=== PATIENT | male | born 1955 | race Caucasian/White ===

== ENCOUNTER 2017-12-21 07:31 | Inpatient (IN) | payer MEDICARE, MEDICAID ==
[~2017-12-21] VITALS: Ht 165.1 cm; Wt 96.0 kg
[~2017-12-21 07:31] MED LIST: AMLO5TAB4 PO; ASPI325T17 PO; ATOR40TA PO; FENO145T32 PO; LISI-167 PO; METO25TA35 PO; SIMV20TA PO; TRAZ-136 PO; VALS80TA3 PO
[2017-12-21] MEDS ORDERED: LIDOCAINE 2%,20 ML JEL.PF.APP MM ONE (07:47)
[2017-12-21 08:19] LABS: BASOPHILS # (AUTO) 0.02 x10^3/uL (0-0.1); BASOPHILS % (AUTO) 0 % (0-1); EOSINOPHILS # (AUTO) 0.02 x10^3/uL (0-0.4); EOSINOPHILS % (AUTO) 0 % (1-7); LYMPHOCYTES % (AUTO) 7 % (22-44); MD NO; MEAN CORPUSCULAR HEMOGLOBIN 27.6 pg (27.5-34.5); MEAN CORPUSCULAR HGB CONC 33.6 g/dL (33.2-36.2); MEAN PLATELET VOLUME 8.9 fL (7.4-10.4); MONOCYTES # (AUTO) 0.65 x10^3/uL (0.2-0.8); MONOCYTES % (AUTO) 5 % (2-9); NEUTROPHILS # (AUTO) 12.22 x10^3/uL (1.8-6.8); NEUTROPHILS % (AUTO) 88 % (42-75); PLATELET COUNT 294 x10^3/uL (130-400); RED BLOOD COUNT 5.79 x10^6/uL (4.38-5.82); RED CELL DISTRIBUTION WIDTH 13.6 % (9.4-14.8)
[2017-12-21 08:30] LABS: CHLORIDE 106 mmol/L (98-107)
[2017-12-21] MEDS ORDERED: MORPHINE SULFATE 4 MG/ML, 1ML IVPush PRN (08:30)
[2017-12-21] MEDS ORDERED: ONDANSETRON ODT 4 MG PO ONE (08:30)
[2017-12-21 08:31] LABS: ANION GAP 9 mmol/L (5-15); CALCIUM 9.3 mg/dL (8.5-10.1); CREATININE 1.16 mg/dL (0.7-1.3)
[2017-12-21 08:33] LABS: CULTURE INDICATED? YES; MICROSCOPIC INDICATED
[2017-12-21] MEDS ORDERED: ONDANSETRON 2MG/ML, 2ML ONE ×2 (08:47)
[2017-12-21] MEDS ORDERED: DEXAMETHASONE 4 MG/ML, 1ML ONE (08:47)
[2017-12-21] MEDS ORDERED: METOCLOPRAMIDE 5 MG/ML, 2ML ONE (08:48)
[2017-12-21] MEDS ORDERED: LIDOCAINE-MPF 2% ,5ML ONE (08:50)
[2017-12-21] MEDS ORDERED: MIDAZOLAM 1 MG/ML, 2ML ONE (08:50)
[2017-12-21] MEDS ORDERED: PROPOFOL 10 MG/ML, 20ML ONE (08:50)
[2017-12-21] MEDS ORDERED: FENTANYL PF 100 MCG/2ML ONE ×4 (08:50→11:31)
[2017-12-21] MEDS ORDERED: CEFAZOLIN 1,000 MG ONE (09:04)
[2017-12-21] MEDS ORDERED: LABETALOL 5MG/ML 40ML VIAL ONE (09:04)
[2017-12-21] MEDS ORDERED: hydrALAzine 20 MG/ML, 1ML ONE ×2 (09:31→10:48)
[2017-12-21] MEDS: LABETALOL 5MG/ML, 20ML IV PRN ×4 (10:25→10:49)
[2017-12-21] MEDS ORDERED: HYDROmorphone 1 MG/ML, 1ML IV PRN (10:30)
[2017-12-21] MEDS ORDERED: ONDANSETRON 2MG/ML, 2ML IVPush PRN ×2 (10:30→11:30)
[2017-12-21] MEDS ORDERED: MEPERIDINE/PF 25MG/0.5ML IVPush PRN (10:30)
[2017-12-21] MEDS ORDERED: OXYcodone 5 MG/5 ML ORAL.SOL UDC PO PRN (10:30)
[2017-12-21] MEDS ORDERED: MIDAZOLAM 1 MG/ML, 2ML IV PRN (10:30)
[2017-12-21] MEDS: FENTANYL PF 100 MCG/2ML IV PRN ×4 (10:33→11:55)
[2017-12-21] MEDS ORDERED: hydrALAzine 20 MG/ML, 1ML IV ONE (11:00)
[2017-12-21] MEDS ORDERED: OPIUM/BELLADONNA SUPP.RECT 16.2-60 MG PR STA (11:21)
[2017-12-21] MEDS ORDERED: OPIUM/BELLADONNA SUPP.RECT 16.2-30 MG ONE (11:23)
[2017-12-21] MEDS ORDERED: TEMAZEPAM 15 MG CAPSULE PO PRN (11:30)
[2017-12-21] MEDS ORDERED: CEFTRIAXONE 2 GM in SODIUM CHLORIDE 0.9% 50 ML IV SCH (11:30)
[2017-12-21] MEDS ORDERED: morphine SULFATE 10 MG/ML, 1ML IVPush PRN (11:30)
[2017-12-21] MEDS ORDERED: hydrALAzine 20 MG/ML, 1ML IVPush PRN (11:30)
[2017-12-21] MEDS ORDERED: ACETAMINOPHEN 325 MG TABLET PO PRN (11:30)
[2017-12-21] MEDS ORDERED: OPIUM/BELLADONNA SUPP.RECT 16.2-60 MG PR PRN ×2 (12:00→12:55)
[2017-12-21 12:49] VITALS: BP 179/88
[2017-12-21 13:39] VITALS: BP 177/91
[2017-12-21] MEDS: CEFTRIAXONE PMX 2GM/50ML 50 ML IV SCH (14:19)
[2017-12-21] MEDS: FENOFIBRATE 145 MG TABLET PO SCH (14:19)
[2017-12-21] MEDS: AMLODIPINE 10 MG TAB PO SCH (14:19)
[2017-12-21] MEDS: LISINOPRIL 10 MG TABLET PO SCH ×2 (14:19→21:45)
[2017-12-21] MEDS: LACTATED RINGERS 1,000 ML IV SCH (16:53)
[2017-12-21] MEDS: HYDROcodone/APAP 5/325 TABLET PO PRN ×2 (16:53→22:06)
[2017-12-21] MEDS: METOPROLOL TARTRATE 25 MG TABLET PO SCH (18:29)
[2017-12-21 19:51] VITALS: BP 145/74
[2017-12-21 21:44] VITALS: BP 151/73
[2017-12-21] MEDS ORDERED: HEPARIN 5,000 UNITS/ML, 1ML IV ONE (23:30)
[2017-12-21] MEDS: HEPARIN 25,000 UNITS/500ML PMX 500 ML IV PRN (23:50)
[2017-12-22] VITALS (7 sets, daily range): BP systolic 143–175; BP diastolic 74–90
[2017-12-22 05:09] LABS: BASOPHILS # (AUTO) 0.07 x10^3/uL (0-0.1); BASOPHILS % (AUTO) 0 % (0-1); EOSINOPHILS % (AUTO) 0 % (1-7); LYMPHOCYTES # (AUTO) 1.82 x10^3/uL (1-3.4); LYMPHOCYTES % (AUTO) 11 % (22-44); MD NO; MEAN CORPUSCULAR HGB CONC 33.6 g/dL (33.2-36.2); MEAN CORPUSCULAR VOLUME 83.3 fL (81-97); MEAN PLATELET VOLUME 9.3 fL (7.4-10.4); MONOCYTES # (AUTO) 1.51 x10^3/uL (0.2-0.8); MONOCYTES % (AUTO) 9 % (2-9); NEUTROPHILS # (AUTO) 13.96 x10^3/uL (1.8-6.8); NEUTROPHILS % (AUTO) 80 % (42-75); PLATELET COUNT 314 x10^3/uL (130-400); RED BLOOD COUNT 4.85 x10^6/uL (4.38-5.82); RED CELL DISTRIBUTION WIDTH 14.2 % (9.4-14.8)
[2017-12-22 05:20] LABS: ALANINE AMINOTRANSFERASE 26 U/L (12-78); ALBUMIN 3.3 g/dL (3.4-5.0); ANION GAP 10 mmol/L (5-15); CALCIUM 8.6 mg/dL (8.5-10.1); CHLORIDE 106 mmol/L (98-107); CREATININE 1.72 mg/dL (0.7-1.3)
[2017-12-22 05:25] LABS: ALKALINE PHOSPHATASE 63 U/L (45-117); BILIRUBIN,TOTAL 0.7 mg/dL (0.2-1.0); TOTAL PROTEIN 7.7 g/dL (6.4-8.2)
[2017-12-22] MEDS: METOPROLOL TARTRATE 25 MG TABLET PO SCH ×2 (05:26→18:24)
[2017-12-22 05:34] LABS: HEMOGLOBIN A1C 5.5 % (4.2-6.3)
[2017-12-22] MEDS: HEPARIN 5,000 UNITS/ML, 1ML IV PRN ×3 (07:11→22:09)
[2017-12-22] MEDS ORDERED: LORazepam 2 MG/ML, 1ML IVPush PRN (08:30)
[2017-12-22 08:44] LABS: CHOL/HDL RATIO 3.1; LDL/HDL RATIO 1.7 (0.5-3.0)
[2017-12-22] MEDS: LACTATED RINGERS 1,000 ML IV SCH ×2 (09:53→22:25)
[2017-12-22] MEDS: FENOFIBRATE 145 MG TABLET PO SCH (09:53)
[2017-12-22] MEDS: LISINOPRIL 10 MG TABLET PO SCH ×2 (09:53→21:43)
[2017-12-22] MEDS: AMLODIPINE 10 MG TAB PO SCH (09:53)
[2017-12-22] MEDS: HYDROcodone/APAP 5/325 TABLET PO PRN (09:57)
[2017-12-22] MEDS: CEFTRIAXONE PMX 2GM/50ML 50 ML IV SCH (13:32)
[2017-12-22] MEDS: ATORVASTATIN 80 MG TABLET PO SCH (21:42)
[2017-12-22] MEDS: HEPARIN 25,000 UNITS/500ML PMX 500 ML IV PRN (22:08)
[2017-12-23 00:53] VITALS: BP 159/90
[2017-12-23 05:03] VITALS: BP 140/79
[2017-12-23] MEDS: METOPROLOL TARTRATE 25 MG TABLET PO SCH ×2 (05:04→18:32)
[2017-12-23 06:11] LABS: ANION GAP 8 mmol/L (5-15); CHLORIDE 108 mmol/L (98-107)
[2017-12-23 06:12] LABS: BASOPHILS # (AUTO) 0.06 x10^3/uL (0-0.1); BASOPHILS % (AUTO) 1 % (0-1); EOSINOPHILS # (AUTO) 0.13 x10^3/uL (0-0.4); EOSINOPHILS % (AUTO) 1 % (1-7); LYMPHOCYTES # (AUTO) 2.65 x10^3/uL (1-3.4); LYMPHOCYTES % (AUTO) 22 % (22-44); MD NO; MEAN CORPUSCULAR HGB CONC 33.6 g/dL (33.2-36.2); MEAN CORPUSCULAR VOLUME 83.4 fL (81-97); MONOCYTES # (AUTO) 1.39 x10^3/uL (0.2-0.8); MONOCYTES % (AUTO) 11 % (2-9); NEUTROPHILS # (AUTO) 8.01 x10^3/uL (1.8-6.8); NEUTROPHILS % (AUTO) 65 % (42-75); PLATELET COUNT 249 x10^3/uL (130-400); RED CELL DISTRIBUTION WIDTH 14.4 % (9.4-14.8)
[2017-12-23] MEDS: HEPARIN 5,000 UNITS/ML, 1ML IV PRN (06:16)
[2017-12-23 08:00] VITALS: BP 145/95
[2017-12-23] MEDS: LISINOPRIL 10 MG TABLET PO SCH ×2 (09:10→21:53)
[2017-12-23] MEDS: FENOFIBRATE 145 MG TABLET PO SCH (09:10)
[2017-12-23] MEDS: AMLODIPINE 10 MG TAB PO SCH (09:11)
[2017-12-23] MEDS: ASPIRIN 81 MG TABLET EC PO SCH (09:31)
[2017-12-23] MEDS: LACTATED RINGERS 1,000 ML IV SCH (09:32)
[2017-12-23 13:00] VITALS: BP 154/85
[2017-12-23] MEDS: CEFTRIAXONE PMX 2GM/50ML 50 ML IV SCH (13:57)
[2017-12-23] MEDS: LIDOCAINE 4% CREAM 5GM TUBE TP PRN (18:32)
[2017-12-23 20:11] VITALS: BP 165/84
[2017-12-23] MEDS: ATORVASTATIN 80 MG TABLET PO SCH (21:53)
[2017-12-24] VITALS (7 sets, daily range): BP systolic 119–191; BP diastolic 67–99
[2017-12-24] MEDS: LACTATED RINGERS 1,000 ML IV SCH ×2 (00:22→14:12)
[2017-12-24 05:07] LABS: BASOPHILS # (AUTO) 0.06 x10^3/uL (0-0.1); BASOPHILS % (AUTO) 1 % (0-1); EOSINOPHILS # (AUTO) 0.27 x10^3/uL (0-0.4); EOSINOPHILS % (AUTO) 2 % (1-7); LYMPHOCYTES # (AUTO) 2.16 x10^3/uL (1-3.4); LYMPHOCYTES % (AUTO) 17 % (22-44); MD NO; MEAN CORPUSCULAR HEMOGLOBIN 27.6 pg (27.5-34.5); MEAN CORPUSCULAR HGB CONC 33.3 g/dL (33.2-36.2); MEAN CORPUSCULAR VOLUME 82.8 fL (81-97); MEAN PLATELET VOLUME 8.8 fL (7.4-10.4); MONOCYTES # (AUTO) 1.41 x10^3/uL (0.2-0.8); MONOCYTES % (AUTO) 11 % (2-9); NEUTROPHILS # (AUTO) 8.48 x10^3/uL (1.8-6.8); NEUTROPHILS % (AUTO) 69 % (42-75); PLATELET COUNT 261 x10^3/uL (130-400); RED BLOOD COUNT 4.69 x10^6/uL (4.38-5.82); RED CELL DISTRIBUTION WIDTH 14.5 % (9.4-14.8)
[2017-12-24 05:20] LABS: ANION GAP 9 mmol/L (5-15); CALCIUM 9.2 mg/dL (8.5-10.1); CHLORIDE 108 mmol/L (98-107); CREATININE 0.94 mg/dL (0.7-1.3)
[2017-12-24] MEDS: ASPIRIN 81 MG TABLET EC PO SCH (06:27)
[2017-12-24] MEDS: METOPROLOL TARTRATE 25 MG TABLET PO SCH (06:27)
[2017-12-24] MEDS ORDERED: SODIUM CHLORIDE 0.9% 1,000 ML IV ONE (09:16)
[2017-12-24] MEDS: AMLODIPINE 10 MG TAB PO SCH (10:41)
[2017-12-24] MEDS: LISINOPRIL 10 MG TABLET PO SCH ×2 (10:41→21:08)
[2017-12-24] MEDS: FENOFIBRATE 145 MG TABLET PO SCH (10:41)
[2017-12-24] MEDS: AQUAPHOR NATURAL HEALING OINT 50GM TP PRN (10:48)
[2017-12-24] MEDS ORDERED: HEPARIN 1,000 UNITS/ML, 10ML ONE (11:37)
[2017-12-24] MEDS ORDERED: VERAPAMIL 2.5 MG/ML, 2ML ONE (11:37)
[2017-12-24] MEDS ORDERED: BUPIVACAINE 0.25% ONE (11:37)
[2017-12-24] MEDS ORDERED: MIDAZOLAM 1 MG/ML, 5ML ONE (11:37)
[2017-12-24] MEDS ORDERED: BIVALIRUDIN 250 MG ONE (11:37)
[2017-12-24] MEDS ORDERED: FENTANYL PF 100 MCG/2ML ONE (11:37)
[2017-12-24] MEDS ORDERED: SODIUM CHLORIDE 0.9% 1,000 ML IV SCH (13:07)
[2017-12-24] MEDS: CEFTRIAXONE PMX 2GM/50ML 50 ML IV SCH (14:11)
[2017-12-24] MEDS: CARVEDILOL 6.25 MG TABLET PO SCH (17:19)
[2017-12-24] MEDS: ATORVASTATIN 80 MG TABLET PO SCH (21:08)
[2017-12-25 01:47] VITALS: BP 164/81
[2017-12-25] MEDS: LIDOCAINE 4% CREAM 5GM TUBE TP PRN ×2 (02:18→11:39)
[2017-12-25] MEDS: AQUAPHOR NATURAL HEALING OINT 50GM TP PRN (02:18)
[2017-12-25] MEDS: LACTATED RINGERS 1,000 ML IV SCH ×2 (03:45→19:38)
[2017-12-25 05:33] LABS: BASOPHILS # (AUTO) 0.03 x10^3/uL (0-0.1); BASOPHILS % (AUTO) 0 % (0-1); EOSINOPHILS # (AUTO) 0.43 x10^3/uL (0-0.4); EOSINOPHILS % (AUTO) 4 % (1-7); LYMPHOCYTES # (AUTO) 2.45 x10^3/uL (1-3.4); LYMPHOCYTES % (AUTO) 20 % (22-44); MD NO; MEAN CORPUSCULAR HEMOGLOBIN 28.4 pg (27.5-34.5); MEAN CORPUSCULAR HGB CONC 33.8 g/dL (33.2-36.2); MEAN CORPUSCULAR VOLUME 83.9 fL (81-97); MEAN PLATELET VOLUME 9.3 fL (7.4-10.4); MONOCYTES % (AUTO) 12 % (2-9); NEUTROPHILS # (AUTO) 7.84 x10^3/uL (1.8-6.8); NEUTROPHILS % (AUTO) 65 % (42-75); PLATELET COUNT 250 x10^3/uL (130-400); RED BLOOD COUNT 4.44 x10^6/uL (4.38-5.82); RED CELL DISTRIBUTION WIDTH 13.8 % (9.4-14.8)
[2017-12-25] MEDS: ASPIRIN 81 MG TABLET EC PO SCH (05:42)
[2017-12-25] MEDS: CARVEDILOL 6.25 MG TABLET PO SCH (05:43)
[2017-12-25 05:47] LABS: ANION GAP 9 mmol/L (5-15); CALCIUM 8.8 mg/dL (8.5-10.1); CHLORIDE 107 mmol/L (98-107)
[2017-12-25 05:51] LABS: ALANINE AMINOTRANSFERASE 22 U/L (12-78); ALKALINE PHOSPHATASE 58 U/L (45-117); BILIRUBIN,TOTAL 0.9 mg/dL (0.2-1.0); CREATININE 0.89 mg/dL (0.7-1.3); TOTAL PROTEIN 7.1 g/dL (6.4-8.2)
[2017-12-25 06:40] VITALS: BP 148/43
[2017-12-25] MEDS: AMLODIPINE 10 MG TAB PO SCH (10:06)
[2017-12-25] MEDS: LISINOPRIL 10 MG TABLET PO SCH ×2 (10:07→21:05)
[2017-12-25] MEDS: FENOFIBRATE 145 MG TABLET PO SCH (10:07)
[2017-12-25 10:09] VITALS: BP 180/94
[2017-12-25 11:37] VITALS: BP 164/81
[2017-12-25] MEDS: CEFTRIAXONE PMX 2GM/50ML 50 ML IV SCH (13:19)
[2017-12-25 15:31] VITALS: BP 160/77
[2017-12-25] MEDS: CARVEDILOL 12.5 MG TABLET PO SCH (17:50)
[2017-12-25 18:48] VITALS: BP 155/81
[2017-12-25] MEDS: ATORVASTATIN 80 MG TABLET PO SCH (21:05)
[2017-12-26 00:42] VITALS: BP 150/83
[2017-12-26 04:52] LABS: BASOPHILS # (AUTO) 0.04 x10^3/uL (0-0.1); BASOPHILS % (AUTO) 0 % (0-1); EOSINOPHILS # (AUTO) 0.49 x10^3/uL (0-0.4); EOSINOPHILS % (AUTO) 4 % (1-7); LYMPHOCYTES # (AUTO) 2.65 x10^3/uL (1-3.4); LYMPHOCYTES % (AUTO) 22 % (22-44); MD NO; MEAN CORPUSCULAR HEMOGLOBIN 28.2 pg (27.5-34.5); MEAN CORPUSCULAR HGB CONC 33.7 g/dL (33.2-36.2); MEAN CORPUSCULAR VOLUME 83.6 fL (81-97); MEAN PLATELET VOLUME 9.9 fL (7.4-10.4); MONOCYTES # (AUTO) 1.28 x10^3/uL (0.2-0.8); MONOCYTES % (AUTO) 11 % (2-9); NEUTROPHILS # (AUTO) 7.35 x10^3/uL (1.8-6.8); NEUTROPHILS % (AUTO) 62 % (42-75); PLATELET COUNT 265 x10^3/uL (130-400); RED BLOOD COUNT 4.52 x10^6/uL (4.38-5.82)
[2017-12-26 04:55] LABS: ANION GAP 8 mmol/L (5-15); CALCIUM 9.4 mg/dL (8.5-10.1); CHLORIDE 110 mmol/L (98-107)
[2017-12-26 04:57] LABS: CREATININE 0.98 mg/dL (0.7-1.3)
[2017-12-26] MEDS: ASPIRIN 81 MG TABLET EC PO SCH (05:44)
[2017-12-26] MEDS: CARVEDILOL 12.5 MG TABLET PO SCH ×2 (05:44→17:43)
[2017-12-26 06:37] VITALS: BP 141/75
[2017-12-26] MEDS: FENOFIBRATE 145 MG TABLET PO SCH (08:55)
[2017-12-26] MEDS: LISINOPRIL 10 MG TABLET PO SCH ×2 (08:58→20:53)
[2017-12-26] MEDS: AMLODIPINE 10 MG TAB PO SCH (09:00)
[2017-12-26] MEDS: LACTATED RINGERS 1,000 ML IV SCH ×2 (09:58→22:50)
[2017-12-26] MEDS: CEFTRIAXONE PMX 2GM/50ML 50 ML IV SCH (13:30)
[2017-12-26 14:57] VITALS: BP 156/79
[2017-12-26] MEDS: MUPIROCIN OINT 2%, 22GM TP SCH ×2 (17:39→20:53)
[2017-12-26] MEDS: ATORVASTATIN 80 MG TABLET PO SCH (20:53)
[2017-12-26] MEDS: LIDOCAINE 4% CREAM 5GM TUBE TP PRN (20:58)
[2017-12-26 21:01] VITALS: BP 139/81
[2017-12-27 00:45] VITALS: BP 150/80
[2017-12-27] MEDS: ASPIRIN 81 MG TABLET EC PO SCH (05:26)
[2017-12-27] MEDS: CARVEDILOL 12.5 MG TABLET PO SCH (05:27)
[2017-12-27] MEDS: MUPIROCIN OINT 2%, 22GM TP SCH ×2 (06:00→10:47)
[2017-12-27 06:36] VITALS: BP 129/75
[2017-12-27] MEDS: FENOFIBRATE 145 MG TABLET PO SCH (08:49)
[2017-12-27] MEDS: LISINOPRIL 10 MG TABLET PO SCH (08:49)
[2017-12-27] MEDS: AMLODIPINE 10 MG TAB PO SCH (08:49)
[2017-12-27] MEDS ORDERED: DOXYCYCLINE 100MG TABLET PO SCH (11:30)
[2017-12-27] MEDS ORDERED: AMOXICILLIN/CLAV 875-125MG TABLET PO SCH (11:30)
[2017-12-27] MEDS ORDERED: ASPI-621 PO (11:38)
[2017-12-27] MEDS ORDERED: MUPI22OI2 TP (11:38)
[2017-12-27] MEDS ORDERED: LIDO5CRE19 TP (11:38)
[2017-12-27] MEDS ORDERED: PETR50OI TP (11:38)
[2017-12-27] MEDS ORDERED: ATOR-2 PO (11:38)
[2017-12-27] MEDS ORDERED: AMOX1TAB64 PO (11:38)
[2017-12-27] MEDS ORDERED: CARV12.543 PO (11:38)
[2017-12-27] MEDS ORDERED: DOXY100C15 PO (11:38)
[2017-12-27] MEDS ORDERED: LISI-167 PO (11:40)
[2017-12-27] MEDS ORDERED: CEFTRIAXONE PMX 2GM/50ML 50 ML IV ONE (12:00)
[2017-12-27 12:45] VITALS: BP 135/69
== END 2017-12-27 15:37 | disposition home or self-care (01) | DRG 280 ==
LOC: OR 08:22 → EDIP 08:23 → 5SO 12:47
PROVIDERS: ADMIT Urology; ATTEND Internal Medicine
PROC: 0T7D8ZZ Dilation of Urethra, Via Natural or Artificial Opening Endoscopic (ICD-10-PCS; 2017-12-21)
PROC: 0TCD8ZZ Extirpation of Matter from Urethra, Via Natural or Artificial Opening Endoscopic (ICD-10-PCS; principal; 2017-12-21 08:15)
PROC: 4A023N7 Measurement of Cardiac Sampling and Pressure, Left Heart, Percutaneous Approach (ICD-10-PCS; 2017-12-24)
PROC: B2111ZZ Fluoroscopy of Multiple Coronary Arteries using Low Osmolar Contrast (ICD-10-PCS; 2017-12-24)
PROC: B2151ZZ Fluoroscopy of Left Heart using Low Osmolar Contrast (ICD-10-PCS; 2017-12-24)
DX: I21.4 Non-ST elevation (NSTEMI) myocardial infarction (principal); N17.0 Acute kidney failure with tubular necrosis; N39.0 Urinary tract infection, site not specified; I69.351 Hemiplegia and hemiparesis following cerebral infarction affecting right dominant side; N20.2 Calculus of kidney with calculus of ureter; N21.1 Calculus in urethra; I16.0 Hypertensive urgency; N35.911 Unspecified urethral stricture, male, meatal; R36.9 Urethral discharge, unspecified; R39.11 Hesitancy of micturition; D64.9 Anemia, unspecified; E66.9 Obesity, unspecified; Z68.35 Body mass index [BMI] 35.0-35.9, adult; E78.5 Hyperlipidemia, unspecified; F32.9 Major depressive disorder, single episode, unspecified; I10 Essential (primary) hypertension; I25.10 Atherosclerotic heart disease of native coronary artery without angina pectoris; I34.0 Nonrheumatic mitral (valve) insufficiency; R31.0 Gross hematuria; N40.1 Benign prostatic hyperplasia with lower urinary tract symptoms; R33.8 Other retention of urine; Z80.8 Family history of malignant neoplasm of other organs or systems; Z82.49 Family history of ischemic heart disease and other diseases of the circulatory system; Z87.442 Personal history of urinary calculi; Z87.891 Personal history of nicotine dependence; Z91.14 Patient's other noncompliance with medication regimen; Z95.1 Presence of aortocoronary bypass graft
CPT/HCPCS: 36415; 80048; 80053; 80061; 81001; 82040; 82360; 83036; 83735; 83880; 84100; 84443; 84484; 85014; 85018; 85025; 85520; 87040; 87070; 87086; 87205; 87491; 87591; 88300; 90656; 93005; 93306; 93458; 93880; 93970; 99156; 99285; C1769; C1894; G0378; J0583; J0690; J0696; J1100; J1644; J2250; J2405; J2704; J3010; J3490; C1758; J0360; J2060; J2765; J7030; J7120; Q9967